=== PATIENT | female | born 1970 | race Caucasian/White ===

== ENCOUNTER 2020-03-19 07:15 | Emergency (ER) | payer OTHER ==
[~2020-03-19] VITALS: Ht 170.2 cm; Wt 65.8 kg
[~2020-03-19 07:15] MED LIST: ANTIVERT25 M1 PO; BRINTELLIX PO; XANAX0.25 MG PO
== END 2020-03-19 12:13 | disposition home or self-care (01) ==
LOC: ER 07:15
DX: O26.852 Spotting complicating pregnancy, second trimester (principal); Z3A.22 22 weeks gestation of pregnancy